=== PATIENT | female | born 1990 | race Caucasian/White ===

== ENCOUNTER 2017-02-03 23:00 | Emergency (ER) | payer OTHER ==
[2017-02-03 23:51] VITALS: BP 125/85
== END 2017-02-03 23:51 | disposition home or self-care (01) ==
LOC: ED 23:00
DX: S61.031A Puncture wound without foreign body of right thumb without damage to nail, initial encounter (principal); X58.XXXA Exposure to other specified factors, initial encounter; Y93.89 Activity, other specified; Y99.8 Other external cause status; Y92.89 Other specified places as the place of occurrence of the external cause
CPT/HCPCS: 36415